=== PATIENT | female | born 1970 | race Two or more races ===

== ENCOUNTER 2017-03-24 08:57 | Outpatient (RCR) | payer OTHER ==
[~2017-03-24] VITALS: Ht 167.6 cm; Wt 96.2 kg
[2017-03-24] MEDS ORDERED: Methohexital Sodium Syr 100mg/10ml IVP ONE ×2 (08:58)
[2017-03-24] MEDS ORDERED: Midazolam 2mg/2ml Inj ONE ×2 (08:58)
[2017-03-24] MEDS ORDERED: NS 500ML IV ONE ×2 (08:58)
[2017-03-24] MEDS ORDERED: Ketorolac 60mg Inj ONE ×2 (08:58)
[2017-03-24] MEDS ORDERED: Succinylcholine 20mg/ml 10ml vial ONE ×2 (08:58)
[2017-03-26] MEDS ORDERED: Methohexital Sodium Syr 100mg/10ml IVP ONE (07:00)
[2017-03-26] MEDS ORDERED: Midazolam 2mg/2ml Inj ONE (07:00)
[2017-03-26] MEDS ORDERED: Succinylcholine 20mg/ml 10ml vial ONE (07:00)
[2017-03-26] MEDS ORDERED: Ketorolac 60mg Inj ONE (07:00)
[2017-03-26] MEDS ORDERED: NS 500ML IV ONE (07:00)
[2017-03-26] MEDS ORDERED: Ketorolac 60mg Inj IV ONE (10:00)
[2017-03-26] MEDS ORDERED: Sodium Chloride 500ML 500 ML IV ONE (10:00)
[2017-03-28] MEDS ORDERED: Ketorolac 60mg Inj ONE (06:00)
[2017-03-28] MEDS ORDERED: NS 500ML IV ONE (06:00)
[2017-03-28] MEDS ORDERED: Succinylcholine 20mg/ml 10ml vial ONE (06:00)
[2017-03-28] MEDS ORDERED: Methohexital Sodium Syr 100mg/10ml IVP ONE (06:00)
[2017-03-28] MEDS ORDERED: Midazolam 2mg/2ml Inj ONE (06:00)
[2017-03-28] MEDS ORDERED: Sodium Chloride 500ML 500 ML IV ONE (09:12)
[2017-03-31] MEDS ORDERED: Ketorolac 60mg Inj ONE (06:00)
[2017-03-31] MEDS ORDERED: Succinylcholine 20mg/ml 10ml vial ONE (06:00)
[2017-03-31] MEDS ORDERED: Midazolam 2mg/2ml Inj ONE (06:00)
[2017-03-31] MEDS ORDERED: NS 500ML IV ONE (06:00)
[2017-03-31] MEDS ORDERED: Methohexital Sodium Syr 100mg/10ml IVP ONE (06:00)
[2017-03-31] MEDS ORDERED: Sodium Chloride 500ML 500 ML IV ONE (11:46)
[2017-04-02] MEDS ORDERED: Succinylcholine 20mg/ml 10ml vial ONE (07:00)
[2017-04-02] MEDS ORDERED: Midazolam 2mg/2ml Inj ONE (07:00)
[2017-04-02] MEDS ORDERED: Ketorolac 60mg Inj ONE (07:00)
[2017-04-02] MEDS ORDERED: NS 500ML IV ONE (07:00)
[2017-04-02] MEDS ORDERED: Methohexital Sodium Syr 100mg/10ml IVP ONE (07:00)
[2017-04-02] MEDS ORDERED: Sodium Chloride 500ML 500 ML IV ONE (09:35)
[2017-04-04] MEDS ORDERED: Succinylcholine 20mg/ml 10ml vial ONE (06:00)
[2017-04-04] MEDS ORDERED: Midazolam 2mg/2ml Inj ONE (06:00)
[2017-04-04] MEDS ORDERED: Methohexital Sodium Syr 100mg/10ml IVP ONE (06:00)
[2017-04-04] MEDS ORDERED: NS 500ML IV ONE (06:00)
[2017-04-04] MEDS ORDERED: Ketorolac 60mg Inj ONE (06:00)
[2017-04-04] MEDS ORDERED: Sodium Chloride 500ML 500 ML IV ONE (09:30)
== END 2017-04-05 | disposition home or self-care (01) ==
LOC: ECT 08:57
DX: F31.63 Bipolar disorder, current episode mixed, severe, without psychotic features (principal)
CPT/HCPCS: 90870; J0330; J2250; J7040

== ENCOUNTER 2017-04-07 08:58 | Outpatient (RCR) | payer OTHER ==
[~2017-04-07] VITALS: Ht 167.6 cm; Wt 96.0 kg
[2017-04-07] MEDS ORDERED: Ketorolac 60mg Inj ONE (08:59)
[2017-04-07] MEDS ORDERED: Succinylcholine 20mg/ml 10ml vial ONE (08:59)
[2017-04-07] MEDS ORDERED: NS 500ML IV ONE (08:59)
[2017-04-07] MEDS ORDERED: Methohexital Sodium Syr 100mg/10ml IVP ONE (08:59)
[2017-04-07] MEDS ORDERED: Midazolam 2mg/2ml Inj ONE (08:59)
[2017-04-07] MEDS ORDERED: Sodium Chloride 500ML 500 ML IV ONE (10:12)
[2017-04-09] MEDS ORDERED: Methohexital Sodium Syr 100mg/10ml IVP ONE (07:00)
[2017-04-09] MEDS ORDERED: Succinylcholine 20mg/ml 10ml vial ONE (07:00)
[2017-04-09] MEDS ORDERED: NS 500ML IV ONE (07:00)
[2017-04-09] MEDS ORDERED: Midazolam 2mg/2ml Inj ONE (07:00)
[2017-04-09] MEDS ORDERED: Ketorolac 60mg Inj ONE (07:00)
[2017-04-09] MEDS ORDERED: Sodium Chloride 500ML 500 ML IV ONE (10:48)
[2017-04-09] MEDS ORDERED: Atropine Sulfate 0.4mg/ml inj IVP PRN (10:48)
[2017-04-11] MEDS ORDERED: Midazolam 2mg/2ml Inj ONE (07:00)
[2017-04-11] MEDS ORDERED: Methohexital Sodium Syr 100mg/10ml IVP ONE (07:00)
[2017-04-11] MEDS ORDERED: Succinylcholine 20mg/ml 10ml vial ONE (07:00)
[2017-04-11] MEDS ORDERED: NS 500ML IV ONE (07:00)
[2017-04-11] MEDS ORDERED: Ketorolac 60mg Inj ONE (07:00)
[2017-04-11] MEDS ORDERED: Sodium Chloride 500ML 500 ML IV ONE (08:43)
[2017-04-14] MEDS ORDERED: Methohexital Sodium Syr 100mg/10ml IVP ONE (07:00)
[2017-04-14] MEDS ORDERED: NS 500ML IV ONE (07:00)
[2017-04-14] MEDS ORDERED: Midazolam 2mg/2ml Inj ONE (07:00)
[2017-04-14] MEDS ORDERED: Ketorolac 60mg Inj ONE (07:00)
[2017-04-14] MEDS ORDERED: Succinylcholine 20mg/ml 10ml vial ONE (07:00)
[2017-04-14] MEDS ORDERED: Sodium Chloride 500ML 500 ML IV ONE (11:18)
[2017-04-21] MEDS ORDERED: Ketorolac 60mg Inj ONE (08:00)
[2017-04-21] MEDS ORDERED: Methohexital Sodium Syr 100mg/10ml IVP ONE (08:00)
[2017-04-21] MEDS ORDERED: Midazolam 2mg/2ml Inj ONE (08:00)
[2017-04-21] MEDS ORDERED: NS 500ML IV ONE (08:00)
[2017-04-21] MEDS ORDERED: Succinylcholine 20mg/ml 10ml vial ONE (08:00)
[2017-04-21] MEDS ORDERED: Sodium Chloride 500ML 500 ML IV ONE (11:37)
[2017-05-05] MEDS ORDERED: Midazolam 2mg/2ml Inj ONE (07:00)
[2017-05-05] MEDS ORDERED: Ketorolac 60mg Inj ONE (07:00)
[2017-05-05] MEDS ORDERED: Succinylcholine 20mg/ml 10ml vial ONE (07:00)
[2017-05-05] MEDS ORDERED: Methohexital Sodium Syr 100mg/10ml IVP ONE (07:00)
[2017-05-05] MEDS ORDERED: NS 500ML IV ONE (07:00)
[2017-05-05] MEDS ORDERED: Sodium Chloride 500ML 500 ML IV ONE (11:19)
[2017-05-05 11:20] VITALS: BP 127/75
[2017-05-05 11:25] VITALS: BP 121/75
[2017-05-05 11:30] VITALS: BP 119/73
[2017-05-05 11:35] VITALS: BP 116/73
== END 2017-05-06 | disposition home or self-care (01) ==
LOC: ECT 08:58
DX: F31.63 Bipolar disorder, current episode mixed, severe, without psychotic features (principal)
CPT/HCPCS: 90870; J0330; J2250; J7040

== ENCOUNTER 2017-05-07 05:02 | Outpatient (RCR) | payer OTHER ==
[~2017-05-07] VITALS: Ht 167.6 cm; Wt 96.0 kg
[2017-05-07] MEDS ORDERED: Succinylcholine 20mg/ml 10ml vial ONE ×3 (05:03)
[2017-05-07] MEDS ORDERED: Ketorolac 60mg Inj ONE ×3 (05:03)
[2017-05-07] MEDS ORDERED: Midazolam 2mg/2ml Inj ONE ×3 (05:03)
[2017-05-07] MEDS ORDERED: NS 500ML ONE ×2 (05:03)
[2017-05-07] MEDS ORDERED: NS 500ML IV ONE (05:03)
[2017-05-07] MEDS ORDERED: Methohexital Sodium Syr 100mg/10ml IVP ONE ×3 (05:03)
[2017-05-07 09:13] VITALS: BP 116/72
[2017-05-07] MEDS ORDERED: Sodium Chloride 500ML 500 ML IV ONE (09:39)
[2017-05-07 09:40] VITALS: BP 127/64
[2017-05-07 09:45] VITALS: BP 123/51
[2017-05-07 09:50] VITALS: BP 114/48
[2017-05-07 09:55] VITALS: BP 99/51
[2017-05-09] MEDS ORDERED: Succinylcholine 20mg/ml 10ml vial ONE (07:00)
[2017-05-09] MEDS ORDERED: Midazolam 2mg/2ml Inj ONE (07:00)
[2017-05-09] MEDS ORDERED: Ketorolac 60mg Inj ONE (07:00)
[2017-05-09] MEDS ORDERED: Methohexital Sodium Syr 100mg/10ml IVP ONE (07:00)
[2017-05-09] MEDS ORDERED: NS 500ML IV ONE (07:00)
[2017-05-09 08:31] VITALS: BP 114/71
[2017-05-09] MEDS ORDERED: Sodium Chloride 500ML 500 ML IV ONE (08:54)
[2017-05-09 08:55] VITALS: BP 120/49
[2017-05-09 09:00] VITALS: BP 113/49
[2017-05-09 09:05] VITALS: BP 109/65
[2017-05-09 09:10] VITALS: BP 109/65
[2017-05-16] MEDS ORDERED: Midazolam 2mg/2ml Inj ONE (07:00)
[2017-05-16] MEDS ORDERED: Ketorolac 60mg Inj ONE (07:00)
[2017-05-16] MEDS ORDERED: NS 500ML ONE (07:00)
[2017-05-16] MEDS ORDERED: Succinylcholine 20mg/ml 10ml vial ONE (07:00)
[2017-05-16] MEDS ORDERED: Methohexital Sodium Syr 100mg/10ml IVP ONE (07:00)
[2017-05-19 11:40] VITALS: BP 122/49
[2017-05-19] MEDS ORDERED: Sodium Chloride 500ML 500 ML IV ONE (11:54)
[2017-05-19 11:55] VITALS: BP 130/60
[2017-05-19 12:00] VITALS: BP 134/62
[2017-05-19 12:05] VITALS: BP 136/55
[2017-05-19 12:10] VITALS: BP 120/68
[2017-05-21] MEDS ORDERED: Succinylcholine 20mg/ml 10ml vial ONE (08:00)
[2017-05-21] MEDS ORDERED: Ketorolac 60mg Inj ONE (08:00)
[2017-05-21] MEDS ORDERED: Midazolam 2mg/2ml Inj ONE (08:00)
[2017-05-21] MEDS ORDERED: Methohexital Sodium Syr 100mg/10ml IVP ONE (08:00)
[2017-05-21] MEDS ORDERED: NS 500ML ONE (08:00)
[2017-05-21 10:39] VITALS: BP 113/67
[2017-05-21] MEDS ORDERED: Sodium Chloride 500ML 500 ML IV ONE (10:56)
[2017-05-21 11:00] VITALS: BP 124/49
[2017-05-21 11:05] VITALS: BP 120/65
[2017-05-21 11:10] VITALS: BP 113/59
[2017-05-21 11:15] VITALS: BP 116/59
[2017-05-23] MEDS ORDERED: Succinylcholine 20mg/ml 10ml vial ONE (06:00)
[2017-05-23] MEDS ORDERED: NS 500ML ONE (06:00)
[2017-05-23] MEDS ORDERED: Midazolam 2mg/2ml Inj ONE (06:00)
[2017-05-23] MEDS ORDERED: Methohexital Sodium Syr 100mg/10ml IVP ONE (06:00)
[2017-05-23] MEDS ORDERED: Ketorolac 60mg Inj ONE (06:00)
[2017-05-23 09:43] VITALS: BP 122/76
[2017-05-23] MEDS ORDERED: Sodium Chloride 500ML 500 ML IV ONE (09:58)
[2017-05-23 10:00] VITALS: BP 132/51
[2017-05-23 10:05] VITALS: BP 123/55
[2017-05-23 10:10] VITALS: BP 126/62
[2017-05-23 10:15] VITALS: BP 112/54
[2017-05-26 09:26] VITALS: BP 114/71
[2017-05-26 09:42] VITALS: BP 122/57
[2017-05-26] MEDS ORDERED: Sodium Chloride 500ML 500 ML IV ONE (09:42)
[2017-05-26 09:47] VITALS: BP 112/53
[2017-05-26 09:52] VITALS: BP 118/47
[2017-05-26 09:57] VITALS: BP 123/50
[2017-05-28] MEDS ORDERED: Sodium Chloride 500ML 500 ML IV ONE (09:22)
[2017-05-28 09:25] VITALS: BP 117/51
[2017-05-28 09:30] VITALS: BP 112/60
[2017-05-28 09:35] VITALS: BP 109/50
[2017-05-28 09:40] VITALS: BP 97/52
[2017-06-04 11:16] VITALS: BP 106/67
[2017-06-04] MEDS ORDERED: Sodium Chloride 500ML 500 ML IV ONE (11:35)
[2017-06-04 11:40] VITALS: BP_SYST 107; BP_SYST 121; BP_DIAS 46
[2017-06-04 11:45] VITALS: BP 121/22
[2017-06-04 11:50] VITALS: BP 123/61
[2017-06-04 11:55] VITALS: BP 125/63
== END 2017-06-05 | disposition home or self-care (01) ==
LOC: ECT 05:02
DX: F31.63 Bipolar disorder, current episode mixed, severe, without psychotic features (principal)
CPT/HCPCS: 90870; J0330; J2250; J7040

== ENCOUNTER 2017-06-09 06:15 | Outpatient (RCR) | payer OTHER ==
[~2017-06-09] VITALS: Ht 167.6 cm; Wt 96.0 kg
[2017-06-09] MEDS ORDERED: Methohexital Sodium Syr 100mg/10ml IVP ONE ×2 (06:16)
[2017-06-09] MEDS ORDERED: Ketorolac 60mg Inj ONE ×2 (06:16)
[2017-06-09] MEDS ORDERED: NS 500ML ONE ×2 (06:16)
[2017-06-09] MEDS ORDERED: Succinylcholine 20mg/ml 10ml vial ONE ×2 (06:16)
[2017-06-09] MEDS ORDERED: Midazolam 2mg/2ml Inj ONE ×2 (06:16)
[2017-06-09 11:26] VITALS: BP 114/58
[2017-06-09] MEDS ORDERED: Sodium Chloride 500ML 500 ML IV ONE (11:41)
[2017-06-09 11:45] VITALS: BP 127/53
[2017-06-09 11:50] VITALS: BP 111/49
[2017-06-09 11:55] VITALS: BP 109/53
[2017-06-09 12:00] VITALS: BP 113/55
[2017-06-13] MEDS ORDERED: Ketorolac 60mg Inj ONE (07:00)
[2017-06-13] MEDS ORDERED: Methohexital Sodium Syr 100mg/10ml IVP ONE (07:00)
[2017-06-13] MEDS ORDERED: Midazolam 2mg/2ml Inj ONE (07:00)
[2017-06-13] MEDS ORDERED: NS 500ML ONE (07:00)
[2017-06-13] MEDS ORDERED: Succinylcholine 20mg/ml 10ml vial ONE (07:00)
[2017-06-13 10:03] VITALS: BP_SYST 134; BP_DIAS 65; BP_DIAS 68
[2017-06-13] MEDS ORDERED: Sodium Chloride 500ML 500 ML IV ONE (10:19)
[2017-06-13 10:20] VITALS: BP 123/62
[2017-06-13 10:25] VITALS: BP 114/60
[2017-06-13 10:30] VITALS: BP 117/47
[2017-06-13 10:35] VITALS: BP 120/61
[2017-06-18 10:44] VITALS: BP 111/78
[2017-06-18] MEDS ORDERED: Sodium Chloride 500ML 500 ML IV ONE (10:58)
[2017-06-18 11:00] VITALS: BP 107/53
[2017-06-18 11:10] VITALS: BP 102/60
[2017-06-18 11:15] VITALS: BP 106/56
[2017-06-23] MEDS ORDERED: Midazolam 2mg/2ml Inj ONE (08:00)
[2017-06-23] MEDS ORDERED: Methohexital Sodium Syr 100mg/10ml IVP ONE (08:00)
[2017-06-23] MEDS ORDERED: NS 500ML ONE (08:00)
[2017-06-23] MEDS ORDERED: Ketorolac 60mg Inj ONE (08:00)
[2017-06-23] MEDS ORDERED: Succinylcholine 20mg/ml 10ml vial ONE (08:00)
[2017-06-23 09:52] VITALS: BP 109/65
[2017-06-23] MEDS ORDERED: Sodium Chloride 500ML 500 ML IV ONE (10:04)
[2017-06-23 10:05] VITALS: BP 122/53
[2017-06-23 10:10] VITALS: BP 123/50
[2017-06-23 10:15] VITALS: BP 122/84
[2017-06-23 10:20] VITALS: BP 126/78
[2017-06-23 11:05] VITALS: BP 125/60
[2017-07-02] MEDS ORDERED: Ketorolac 60mg Inj ONE (08:00)
[2017-07-02] MEDS ORDERED: Midazolam 2mg/2ml Inj ONE (08:00)
[2017-07-02] MEDS ORDERED: Succinylcholine 20mg/ml 10ml vial ONE (08:00)
[2017-07-02] MEDS ORDERED: NS 500ML ONE (08:00)
[2017-07-02] MEDS ORDERED: Methohexital Sodium Syr 100mg/10ml IVP ONE (08:00)
[2017-07-02 10:50] VITALS: BP 120/64
[2017-07-02] MEDS ORDERED: Sodium Chloride 500ML 500 ML IV ONE (11:13)
[2017-07-02] MEDS ORDERED: Atropine Sulfate 0.4mg/ml inj IVP PRN (11:13)
[2017-07-02 11:15] VITALS: BP 115/47
[2017-07-02 11:20] VITALS: BP 110/48
[2017-07-02 11:25] VITALS: BP 115/51
[2017-07-02 11:30] VITALS: BP 117/47
== END 2017-07-06 | disposition home or self-care (01) ==
LOC: ECT 06:15
DX: F31.63 Bipolar disorder, current episode mixed, severe, without psychotic features (principal)
CPT/HCPCS: 90870; J0330; J2250; J7040

== ENCOUNTER 2017-07-09 07:40 | Outpatient (RCR) | payer OTHER ==
[~2017-07-09] VITALS: Ht 167.6 cm; Wt 96.0 kg
[2017-07-09] MEDS ORDERED: Midazolam 2mg/2ml Inj ONE (07:41)
[2017-07-09] MEDS ORDERED: Methohexital Sodium Syr 100mg/10ml IVP ONE (07:41)
[2017-07-09] MEDS ORDERED: NS 500ML ONE (07:41)
[2017-07-09] MEDS ORDERED: Succinylcholine 20mg/ml 10ml vial ONE (07:41)
[2017-07-09] MEDS ORDERED: Ketorolac 60mg Inj ONE (07:41)
[2017-07-14] MEDS ORDERED: Ketorolac 60mg Inj ONE (07:00)
[2017-07-14] MEDS ORDERED: Midazolam 2mg/2ml Inj ONE (07:00)
[2017-07-14] MEDS ORDERED: NS 500ML ONE (07:00)
[2017-07-14] MEDS ORDERED: Succinylcholine 20mg/ml 10ml vial ONE (07:00)
[2017-07-14] MEDS ORDERED: Methohexital Sodium Syr 100mg/10ml IVP ONE (07:00)
[2017-07-14 10:53] VITALS: BP 114/76
[2017-07-14 11:13] VITALS: BP 108/52
[2017-07-14] MEDS ORDERED: Atropine Sulfate 0.4mg/ml inj IVP PRN (11:13)
[2017-07-14] MEDS ORDERED: Sodium Chloride 500ML 500 ML IV ONE (11:13)
[2017-07-14 11:18] VITALS: BP 116/54
[2017-07-14 11:23] VITALS: BP 123/58
[2017-07-14 11:28] VITALS: BP 112/56
[2017-07-28 10:40] VITALS: BP 111/66
[2017-07-28] MEDS ORDERED: Sodium Chloride 500ML 500 ML IV ONE (10:56)
[2017-07-28 11:00] VITALS: BP 110/48
[2017-07-28 11:08] VITALS: BP 112/51
[2017-07-28 11:10] VITALS: BP 108/57
[2017-07-28 11:20] VITALS: BP 109/51
[2017-07-28 11:25] VITALS: BP 113/55
== END 2017-08-06 | disposition home or self-care (01) ==
LOC: ECT 07:40
DX: F31.63 Bipolar disorder, current episode mixed, severe, without psychotic features (principal); E05.20 Thyrotoxicosis with toxic multinodular goiter without thyrotoxic crisis or storm
CPT/HCPCS: 90870; J0330; J2250; J7040

== ENCOUNTER 2017-08-18 06:56 | Outpatient (RCR) | payer OTHER ==
[~2017-08-18] VITALS: Ht 167.6 cm; Wt 96.0 kg
[2017-08-18] MEDS ORDERED: Ketorolac 60mg Inj ONE (06:57)
[2017-08-18] MEDS ORDERED: Midazolam 2mg/2ml Inj ONE (06:57)
[2017-08-18] MEDS ORDERED: NS 500ML ONE (06:57)
[2017-08-18] MEDS ORDERED: Succinylcholine 20mg/ml 10ml vial ONE (06:57)
[2017-08-18] MEDS ORDERED: Methohexital Sodium Syr 100mg/10ml IVP ONE (06:57)
[2017-08-18 10:28] VITALS: BP 106/57
[2017-08-18] MEDS ORDERED: Sodium Chloride 500ML 500 ML IV ONE (10:50)
[2017-08-18 10:55] VITALS: BP 117/45
[2017-08-18 11:00] VITALS: BP 106/49
[2017-08-18 11:05] VITALS: BP 113/89
[2017-08-18 11:10] VITALS: BP 117/48
== END 2017-09-03 | disposition home or self-care (01) ==
LOC: ECT 06:56
DX: F31.63 Bipolar disorder, current episode mixed, severe, without psychotic features (principal)
CPT/HCPCS: 90870; J0330; J2250; J7040

== ENCOUNTER 2017-09-08 09:10 | Outpatient (RCR) | payer OTHER ==
[~2017-09-08] VITALS: Ht 167.6 cm; Wt 43.5 kg
[2017-09-10] MEDS ORDERED: NS 500ML ONE (07:00)
[2017-09-10] MEDS ORDERED: Ketorolac 60mg Inj ONE (07:00)
[2017-09-10] MEDS ORDERED: Midazolam 2mg/2ml Inj ONE (07:00)
[2017-09-10] MEDS ORDERED: Succinylcholine 20mg/ml 10ml vial ONE (07:00)
[2017-09-10] MEDS ORDERED: Methohexital Sodium Syr 100mg/10ml IVP ONE (07:00)
[2017-09-10 10:53] VITALS: BP 108/60
[2017-09-10] MEDS ORDERED: Sodium Chloride 500ML 500 ML IV ONE (11:08)
[2017-09-10 11:10] VITALS: BP 116/44
[2017-09-10 11:15] VITALS: BP 106/43
[2017-09-10 11:20] VITALS: BP 110/46
[2017-09-10 11:25] VITALS: BP 105/51
== END 2017-10-04 | disposition home or self-care (01) ==
LOC: ECT 09:10
DX: F31.63 Bipolar disorder, current episode mixed, severe, without psychotic features (principal)
CPT/HCPCS: 90870; J0330; J2250; J7040

== ENCOUNTER 2017-10-08 08:24 | Outpatient (RCR) | payer OTHER ==
[~2017-10-08] VITALS: Ht 167.6 cm; Wt 96.0 kg
[2017-10-08] MEDS ORDERED: NS 500ML ONE (08:25)
[2017-10-08] MEDS ORDERED: Succinylcholine 20mg/ml 10ml vial ONE (08:25)
[2017-10-08] MEDS ORDERED: Ketorolac 60mg Inj ONE (08:25)
[2017-10-08] MEDS ORDERED: Midazolam 2mg/2ml Inj ONE (08:25)
[2017-10-08] MEDS ORDERED: Methohexital Sodium 500mg Vial IVP ONE (08:25)
[2017-10-15 08:51] VITALS: BP 111/74
[2017-10-15] MEDS ORDERED: Sodium Chloride 500ML 500 ML IV ONE (09:10)
[2017-10-15 09:15] VITALS: BP 112/50
[2017-10-15 09:20] VITALS: BP 109/55
[2017-10-15 09:25] VITALS: BP 111/53
[2017-10-15 09:30] VITALS: BP 111/53
== END 2017-11-03 | disposition home or self-care (01) ==
LOC: ECT 08:24
DX: F31.63 Bipolar disorder, current episode mixed, severe, without psychotic features (principal)
CPT/HCPCS: 90870; J0330; J2250; J3490; J7040

== ENCOUNTER 2017-11-12 06:49 | Outpatient (RCR) | payer OTHER ==
[~2017-11-12] VITALS: Ht 30.5 cm; Wt 0.5 kg
[2017-11-17] MEDS ORDERED: Midazolam 2mg/2ml Inj ONE (07:00)
[2017-11-17] MEDS ORDERED: Ketorolac 60mg Inj ONE (07:00)
[2017-11-17] MEDS ORDERED: Succinylcholine 20mg/ml 10ml vial ONE (07:00)
[2017-11-17] MEDS ORDERED: Methohexital Sodium Syr 100mg/10ml IVP ONE (07:00)
[2017-11-17] MEDS ORDERED: NS 500ML ONE (07:00)
[2017-11-17] MEDS ORDERED: Atropine Sulfate 0.4mg/ml inj IVP PRN (11:08)
[2017-11-17] MEDS ORDERED: Sodium Chloride 500ML 500 ML IV ONE (11:08)
[2017-11-17 11:10] VITALS: BP 106/43
[2017-11-17 11:15] VITALS: BP 109/49
[2017-11-17 11:20] VITALS: BP 107/47
[2017-11-17 11:25] VITALS: BP 106/48
[2017-11-17 11:30] VITALS: BP 104/42
[2017-11-17 11:35] VITALS: BP 107/44
== END 2017-12-04 | disposition home or self-care (01) ==
LOC: ECT 06:49
DX: F31.63 Bipolar disorder, current episode mixed, severe, without psychotic features (principal)
CPT/HCPCS: 90870; J0330; J2250; J7040

== ENCOUNTER 2017-12-08 09:14 | Outpatient (RCR) | payer OTHER ==
[~2017-12-08] VITALS: Ht 167.6 cm; Wt 96.0 kg
[2017-12-08] MEDS ORDERED: NS 500ML ONE ×2 (09:15)
[2017-12-08] MEDS ORDERED: Methohexital Sodium Syr 100mg/10ml IVP ONE ×2 (09:15)
[2017-12-08] MEDS ORDERED: Midazolam 2mg/2ml Inj ONE ×2 (09:15)
[2017-12-08] MEDS ORDERED: Ketorolac 60mg Inj ONE ×2 (09:15)
[2017-12-08] MEDS ORDERED: Succinylcholine 20mg/ml 10ml vial ONE ×2 (09:15)
[2017-12-08 10:30] VITALS: BP 111/66
[2017-12-08] MEDS ORDERED: Sodium Chloride 500ML 500 ML IV ONE (10:44)
[2017-12-08 10:45] VITALS: BP 120/44
[2017-12-08 10:50] VITALS: BP 109/49
[2017-12-08 10:55] VITALS: BP 112/49
[2017-12-08 11:00] VITALS: BP 113/53
[2017-12-08 11:05] VITALS: BP 116/50
[2017-12-17] MEDS ORDERED: NS 500ML ONE (07:00)
[2017-12-17] MEDS ORDERED: Methohexital Sodium Syr 100mg/10ml IVP ONE (07:00)
[2017-12-17] MEDS ORDERED: Succinylcholine 20mg/ml 10ml vial ONE (07:00)
[2017-12-17] MEDS ORDERED: Ketorolac 60mg Inj ONE (07:00)
[2017-12-17] MEDS ORDERED: Midazolam 2mg/2ml Inj ONE (07:00)
[2017-12-17 10:12] VITALS: BP 117/69
[2017-12-17 10:40] VITALS: BP_SYST 111; BP_SYST 117; BP_DIAS 50; BP_DIAS 69
[2017-12-17 10:45] VITALS: BP 115/55
[2017-12-17 10:50] VITALS: BP 120/54
[2017-12-17 10:55] VITALS: BP 119/56
[2017-12-17] MEDS ORDERED: Atropine Sulfate 0.4mg/ml inj IVP PRN ×2 (14:30→14:45)
[2017-12-19] MEDS ORDERED: Ketorolac 60mg Inj ONE (07:00)
[2017-12-19] MEDS ORDERED: Methohexital Sodium Syr 100mg/10ml IVP ONE (07:00)
[2017-12-19] MEDS ORDERED: NS 500ML ONE (07:00)
[2017-12-19] MEDS ORDERED: Midazolam 2mg/2ml Inj ONE (07:00)
[2017-12-19] MEDS ORDERED: Succinylcholine 20mg/ml 10ml vial ONE (07:00)
[2017-12-19 10:25] VITALS: BP 104/63
[2017-12-19] MEDS ORDERED: Atropine Sulfate 0.4mg/ml inj IVP PRN (10:54)
[2017-12-19] MEDS ORDERED: Sodium Chloride 500ML 500 ML IV ONE (10:54)
[2017-12-19 10:55] VITALS: BP 112/60
[2017-12-19 11:00] VITALS: BP 109/57
[2017-12-19 11:05] VITALS: BP 111/51
[2017-12-19 11:10] VITALS: BP 108/62
[2017-12-22 10:22] VITALS: BP 114/60
[2017-12-22] MEDS ORDERED: Sodium Chloride 500ML 500 ML IV ONE (10:39)
[2017-12-22 10:40] VITALS: BP 112/55
[2017-12-22 10:45] VITALS: BP 117/57
[2017-12-22 10:50] VITALS: BP 116/63
[2017-12-22 10:55] VITALS: BP 110/66
[2017-12-24] MEDS ORDERED: Succinylcholine 20mg/ml 10ml vial ONE (07:00)
[2017-12-24] MEDS ORDERED: NS 500ML ONE (07:00)
[2017-12-24] MEDS ORDERED: Ketorolac 60mg Inj ONE (07:00)
[2017-12-24] MEDS ORDERED: Midazolam 2mg/2ml Inj ONE (07:00)
[2017-12-24] MEDS ORDERED: Methohexital Sodium Syr 100mg/10ml IVP ONE (07:00)
[2017-12-24 10:10] VITALS: BP 99/60
[2017-12-24] MEDS ORDERED: Sodium Chloride 500ML 500 ML IV ONE (10:23)
[2017-12-24 10:25] VITALS: BP 116/46
[2017-12-24 10:30] VITALS: BP 121/47
[2017-12-24 10:35] VITALS: BP 106/53
[2017-12-24 10:40] VITALS: BP 109/52
[2017-12-26] MEDS ORDERED: NS 500ML ONE (07:00)
[2017-12-26] MEDS ORDERED: Midazolam 2mg/2ml Inj ONE (07:00)
[2017-12-26] MEDS ORDERED: Methohexital Sodium Syr 100mg/10ml IVP ONE (07:00)
[2017-12-26] MEDS ORDERED: Ketorolac 60mg Inj ONE (07:00)
[2017-12-26] MEDS ORDERED: Succinylcholine 20mg/ml 10ml vial ONE (07:00)
[2017-12-26 09:23] VITALS: BP 103/62
[2017-12-26 09:39] VITALS: BP 112/64
[2017-12-26] MEDS ORDERED: Sodium Chloride 500ML 500 ML IV ONE (09:39)
[2017-12-26 09:44] VITALS: BP 120/74
[2017-12-26 09:49] VITALS: BP 127/67
[2017-12-26 09:54] VITALS: BP 116/60
[2017-12-31] MEDS ORDERED: Midazolam 2mg/2ml Inj ONE (07:00)
[2017-12-31] MEDS ORDERED: Succinylcholine 20mg/ml 10ml vial ONE (07:00)
[2017-12-31] MEDS ORDERED: Ketorolac 60mg Inj ONE (07:00)
[2017-12-31] MEDS ORDERED: NS 500ML ONE (07:00)
[2017-12-31] MEDS ORDERED: Methohexital Sodium Syr 100mg/10ml IVP ONE (07:00)
[2017-12-31 10:50] VITALS: BP 113/68
[2017-12-31 11:05] VITALS: BP 105/43
[2017-12-31] MEDS ORDERED: Sodium Chloride 500ML 500 ML IV ONE (11:05)
[2017-12-31 11:10] VITALS: BP 101/45
[2017-12-31 11:15] VITALS: BP 108/49
[2017-12-31 11:20] VITALS: BP 108/55
[2018-01-02 08:15] VITALS: BP 107/64
[2018-01-02 08:30] VITALS: BP 105/52
[2018-01-02] MEDS ORDERED: Sodium Chloride 500ML 500 ML IV ONE (08:30)
[2018-01-02 08:35] VITALS: BP 99/45
[2018-01-02 08:40] VITALS: BP 108/56
[2018-01-02 08:45] VITALS: BP 104/64
[2018-01-03] MEDS ORDERED: Ketorolac 60mg Inj ONE (10:21)
[2018-01-03] MEDS ORDERED: Midazolam 2mg/2ml Inj ONE (10:21)
[2018-01-03] MEDS ORDERED: Succinylcholine 20mg/ml 10ml vial ONE (10:21)
[2018-01-03] MEDS ORDERED: Methohexital Sodium 500mg Vial IVP ONE (10:21)
[2018-01-03] MEDS ORDERED: NS 500ML ONE (10:21)
== END 2018-01-03 | disposition home or self-care (01) ==
LOC: ECT 09:14
DX: F31.63 Bipolar disorder, current episode mixed, severe, without psychotic features (principal)
CPT/HCPCS: 90870; J0330; J2250; J3490; J7040

== ENCOUNTER 2018-01-09 05:04 | Outpatient (RCR) | payer OTHER ==
[~2018-01-09] VITALS: Ht 167.6 cm; Wt 96.0 kg
[2018-01-09] MEDS ORDERED: Midazolam 2mg/2ml Inj ONE (05:05)
[2018-01-09] MEDS ORDERED: NS 500ML ONE (05:05)
[2018-01-09] MEDS ORDERED: Succinylcholine 20mg/ml 10ml vial ONE (05:05)
[2018-01-09] MEDS ORDERED: Methohexital Sodium Syr 100mg/10ml IVP ONE (05:05)
[2018-01-09] MEDS ORDERED: Ketamine HCl 100mg syr ONE (05:05)
[2018-01-12] MEDS ORDERED: Midazolam 2mg/2ml Inj ONE (07:00)
[2018-01-12] MEDS ORDERED: Ketorolac 60mg Inj ONE (07:00)
[2018-01-12] MEDS ORDERED: Methohexital Sodium Syr 100mg/10ml IVP ONE (07:00)
[2018-01-12] MEDS ORDERED: NS 500ML ONE (07:00)
[2018-01-12] MEDS ORDERED: Succinylcholine 20mg/ml 10ml vial ONE (07:00)
[2018-01-12 10:30] VITALS: BP 106/63
[2018-01-12] MEDS ORDERED: Sodium Chloride 500ML 500 ML IV ONE (10:43)
[2018-01-12 10:45] VITALS: BP 111/49
[2018-01-12 10:50] VITALS: BP 101/51
[2018-01-12 10:55] VITALS: BP 104/55
[2018-01-12 11:00] VITALS: BP 109/52
[2018-01-14] MEDS ORDERED: Methohexital Sodium Syr 100mg/10ml IVP ONE (06:00)
[2018-01-14] MEDS ORDERED: Succinylcholine 20mg/ml 10ml vial ONE (06:00)
[2018-01-14] MEDS ORDERED: Midazolam 2mg/2ml Inj ONE (06:00)
[2018-01-14] MEDS ORDERED: Ketorolac 60mg Inj ONE (06:00)
[2018-01-14] MEDS ORDERED: NS 500ML ONE (06:00)
[2018-01-14 10:19] VITALS: BP 98/62
[2018-01-14 10:35] VITALS: BP 104/46
[2018-01-14 10:40] VITALS: BP 101/49
[2018-01-14 10:45] VITALS: BP 117/63
[2018-01-14 10:50] VITALS: BP 116/49
[2018-01-16 08:56] VITALS: BP 105/62
[2018-01-16] MEDS ORDERED: Sodium Chloride 500ML 500 ML IV ONE (09:08)
[2018-01-16 09:10] VITALS: BP 103/62
[2018-01-16 09:15] VITALS: BP 104/51
[2018-01-16 09:20] VITALS: BP 119/57
[2018-01-16 09:25] VITALS: BP 115/59
[2018-01-16 09:30] VITALS: BP 112/51
[2018-01-21] MEDS ORDERED: NS 500ML ONE (08:00)
[2018-01-21] MEDS ORDERED: Methohexital Sodium Syr 100mg/10ml IVP ONE (08:00)
[2018-01-21] MEDS ORDERED: Succinylcholine 20mg/ml 10ml vial ONE (08:00)
[2018-01-21] MEDS ORDERED: Midazolam 2mg/2ml Inj ONE (08:00)
[2018-01-21] MEDS ORDERED: Ketorolac 60mg Inj ONE (08:00)
[2018-01-21 11:11] VITALS: BP 114/78
[2018-01-21] MEDS ORDERED: Sodium Chloride 500ML 500 ML IV ONE (11:25)
[2018-01-21 11:30] VITALS: BP 132/58
[2018-01-21 11:35] VITALS: BP 138/55
[2018-01-21 11:40] VITALS: BP 130/60
[2018-01-21 11:45] VITALS: BP 126/73
[2018-02-02] MEDS ORDERED: Succinylcholine 20mg/ml 10ml vial ONE (08:00)
[2018-02-02] MEDS ORDERED: Methohexital Sodium Syr 100mg/10ml IVP ONE (08:00)
[2018-02-02] MEDS ORDERED: NS 500ML ONE (08:00)
[2018-02-02] MEDS ORDERED: Ketorolac 60mg Inj ONE (08:00)
[2018-02-02] MEDS ORDERED: Midazolam 2mg/2ml Inj ONE (08:00)
[2018-02-02 10:37] VITALS: BP 111/63
[2018-02-02] MEDS ORDERED: Sodium Chloride 500ML 500 ML IV ONE (10:54)
[2018-02-02 10:55] VITALS: BP 105/71
[2018-02-02 11:00] VITALS: BP 112/46
[2018-02-02 11:05] VITALS: BP 115/54
[2018-02-02 11:10] VITALS: BP 117/56
== END 2018-02-03 | disposition home or self-care (01) ==
LOC: ECT 05:04
DX: F31.63 Bipolar disorder, current episode mixed, severe, without psychotic features (principal)
CPT/HCPCS: 90870; J0330; J2250; J7040

== ENCOUNTER 2018-02-18 06:29 | Outpatient (RCR) | payer OTHER ==
[~2018-02-18] VITALS: Ht 30.5 cm; Wt 0.5 kg
[2018-02-18] MEDS ORDERED: Ketorolac 60mg Inj IM ONE (06:30)
[2018-02-18] MEDS ORDERED: Succinylcholine 20mg/ml 10ml vial ONE (06:30)
[2018-02-18] MEDS ORDERED: Midazolam 2mg/2ml Inj ONE (06:30)
[2018-02-18] MEDS ORDERED: NS 500ML ONE (06:30)
[2018-02-18] MEDS ORDERED: Methohexital Sodium Syr 100mg/10ml IVP ONE (06:30)
[2018-02-18] MEDS ORDERED: Sodium Chloride 500ML 500 ML IV ONE (10:13)
[2018-02-18 10:15] VITALS: BP 112/53
[2018-02-18 10:20] VITALS: BP 111/48
[2018-02-18 10:25] VITALS: BP 119/49
[2018-02-18 10:30] VITALS: BP 117/51
[2018-02-18 10:35] VITALS: BP 120/53
== END 2018-03-06 | disposition home or self-care (01) ==
LOC: ECT 06:29
DX: F31.63 Bipolar disorder, current episode mixed, severe, without psychotic features (principal)
CPT/HCPCS: 90870; J0330; J2250; J7040

== ENCOUNTER 2018-03-11 06:57 | Outpatient (RCR) | payer OTHER ==
[~2018-03-11] VITALS: Ht 167.6 cm; Wt 96.0 kg
[2018-03-30] MEDS ORDERED: Methohexital Sodium Syr 100mg/10ml IVP ONE (07:00)
[2018-03-30] MEDS ORDERED: NS 500ML ONE (07:00)
[2018-03-30] MEDS ORDERED: Succinylcholine 20mg/ml 10ml vial ONE (07:00)
[2018-03-30] MEDS ORDERED: Ketorolac 60mg Inj IM ONE (07:00)
[2018-03-30] MEDS ORDERED: Midazolam 2mg/2ml Inj ONE (07:00)
[2018-03-30 09:54] VITALS: BP_SYST 101; BP_SYST 119; BP_DIAS 56; BP_DIAS 78
[2018-03-30] MEDS ORDERED: Sodium Chloride 500ML 500 ML IV ONE (10:00)
[2018-03-30 10:15] VITALS: BP 118/53
[2018-03-30 10:20] VITALS: BP 120/53
[2018-03-30 10:25] VITALS: BP 121/54
[2018-03-30 10:30] VITALS: BP 113/53
== END 2018-04-05 | disposition home or self-care (01) ==
LOC: ECT 06:57
DX: F31.63 Bipolar disorder, current episode mixed, severe, without psychotic features (principal)
CPT/HCPCS: 90870; J0330; J2250; J7040

== ENCOUNTER 2018-04-13 05:45 | Outpatient (RCR) | payer OTHER ==
[~2018-04-13] VITALS: Ht 30.5 cm; Wt 0.5 kg
[2018-04-20] MEDS ORDERED: Ketorolac 60mg Inj IM ONE (06:00)
[2018-04-20] MEDS ORDERED: Midazolam 2mg/2ml Inj ONE (06:00)
[2018-04-20] MEDS ORDERED: Methohexital Sodium Syr 100mg/10ml IVP ONE (06:00)
[2018-04-20] MEDS ORDERED: NS 500ML ONE (06:00)
[2018-04-20] MEDS ORDERED: Succinylcholine 20mg/ml 10ml vial ONE (06:00)
[2018-04-20 11:05] VITALS: BP 112/67
[2018-04-20] MEDS ORDERED: Sodium Chloride 500ML 500 ML IV ONE (11:24)
[2018-04-20 11:25] VITALS: BP 121/61
[2018-04-20 11:30] VITALS: BP 116/57
[2018-04-20 11:35] VITALS: BP 114/54
[2018-04-20 11:40] VITALS: BP 114/60
== END 2018-05-06 | disposition home or self-care (01) ==
LOC: ECT 05:45
DX: F31.63 Bipolar disorder, current episode mixed, severe, without psychotic features (principal)
CPT/HCPCS: 90870; J0330; J2250; J7040

== ENCOUNTER 2018-05-13 05:17 | Outpatient (RCR) | payer OTHER ==
[~2018-05-13] VITALS: Ht 167.6 cm; Wt 96.0 kg
[2018-05-13] MEDS ORDERED: NS 500ML ONE (05:18)
[2018-05-13] MEDS ORDERED: Ketorolac 60mg Inj IM ONE (05:18)
[2018-05-13] MEDS ORDERED: Midazolam 2mg/2ml Inj ONE (05:18)
[2018-05-13] MEDS ORDERED: Succinylcholine 20mg/ml 10ml vial ONE (05:18)
[2018-05-13] MEDS ORDERED: Methohexital Sodium Syr 100mg/10ml IVP ONE (05:18)
[2018-05-13 10:24] VITALS: BP 110/68
[2018-05-13] MEDS ORDERED: Sodium Chloride 500ML 500 ML IV ONE (10:46)
[2018-05-13 10:50] VITALS: BP 126/54
[2018-05-13 10:55] VITALS: BP 127/47
[2018-05-13 11:00] VITALS: BP 111/47
[2018-05-13 11:05] VITALS: BP 112/49
== END 2018-06-05 | disposition home or self-care (01) ==
LOC: ECT 05:17
DX: F31.63 Bipolar disorder, current episode mixed, severe, without psychotic features (principal)
CPT/HCPCS: 90870; J0330; J2250; J7040

== ENCOUNTER 2018-06-10 05:11 | Outpatient (RCR) | payer OTHER ==
[~2018-06-10] VITALS: Ht 167.6 cm; Wt 96.0 kg
[2018-06-10] MEDS ORDERED: Midazolam 2mg/2ml Inj ONE (05:12)
[2018-06-10] MEDS ORDERED: Methohexital Sodium Syr 100mg/10ml IVP ONE (05:12)
[2018-06-10] MEDS ORDERED: NS 500ML ONE (05:12)
[2018-06-10] MEDS ORDERED: Succinylcholine 20mg/ml 10ml vial ONE (05:12)
[2018-06-10] MEDS ORDERED: Ketorolac 60mg Inj IM ONE (05:12)
[2018-06-10 10:32] VITALS: BP 117/63
[2018-06-10 10:55] VITALS: BP 113/57
[2018-06-10 11:00] VITALS: BP 115/55
[2018-06-10 11:05] VITALS: BP 111/60
[2018-06-10 11:10] VITALS: BP 116/64
[2018-06-10] MEDS ORDERED: Sodium Chloride 500ML 500 ML IV ONE (14:30)
== END 2018-07-06 | disposition home or self-care (01) ==
LOC: ECT 05:11
DX: F31.63 Bipolar disorder, current episode mixed, severe, without psychotic features (principal)
CPT/HCPCS: 90870; J0330; J2250; J7040

== ENCOUNTER 2018-07-08 05:48 | Outpatient (RCR) | payer MEDICARE, OTHER ==
[~2018-07-08] VITALS: Ht 167.6 cm; Wt 96.0 kg
[2018-07-08] MEDS ORDERED: Methohexital Sodium Syr 100mg/10ml IVP ONE (05:49)
[2018-07-08] MEDS ORDERED: Midazolam 2mg/2ml Inj ONE (05:49)
[2018-07-08] MEDS ORDERED: Succinylcholine 20mg/ml 10ml vial ONE (05:49)
[2018-07-08] MEDS ORDERED: Ketorolac 60mg Inj IM ONE (05:49)
[2018-07-08] MEDS ORDERED: NS 500ML ONE (05:49)
[2018-07-08 10:10] VITALS: BP 103/54
[2018-07-08 10:36] VITALS: BP 107/34
[2018-07-08 10:41] VITALS: BP 105/55
[2018-07-08 10:46] VITALS: BP 109/45
[2018-07-08 10:51] VITALS: BP 102/52
== END 2018-08-06 | disposition home or self-care (01) ==
LOC: ECT 05:48
DX: F31.63 Bipolar disorder, current episode mixed, severe, without psychotic features (principal)
CPT/HCPCS: 90870; J0330; J2250; J7040

== ENCOUNTER 2018-08-10 05:06 | Outpatient (RCR) | payer OTHER ==
[~2018-08-10] VITALS: Ht 167.6 cm; Wt 96.0 kg
[2018-08-19 10:54] VITALS: BP 102/59
[2018-08-19 11:10] VITALS: BP 111/55
[2018-08-19 11:15] VITALS: BP 108/58
[2018-08-19 11:20] VITALS: BP 117/64
[2018-08-19 11:25] VITALS: BP 116/57
[2018-08-20] MEDS ORDERED: Methohexital Sodium Syr 100mg/10ml IVP ONE (06:00)
[2018-08-20] MEDS ORDERED: Ketorolac 60mg Inj IM ONE (06:00)
[2018-08-20] MEDS ORDERED: Midazolam 2mg/2ml Inj ONE (06:00)
[2018-08-20] MEDS ORDERED: NS 500ML ONE (06:00)
[2018-08-20] MEDS ORDERED: Succinylcholine 20mg/ml 10ml vial ONE (06:00)
[2018-08-31] MEDS ORDERED: Succinylcholine 20mg/ml 10ml vial ONE (06:00)
[2018-08-31] MEDS ORDERED: Midazolam 2mg/2ml Inj ONE (06:00)
[2018-08-31] MEDS ORDERED: Ketorolac 60mg Inj IM ONE (06:00)
[2018-08-31] MEDS ORDERED: Methohexital Sodium Syr 100mg/10ml IVP ONE (06:00)
[2018-08-31] MEDS ORDERED: NS 500ML ONE (06:00)
[2018-08-31 10:30] VITALS: BP 121/76
[2018-08-31 10:46] VITALS: BP 107/44
[2018-08-31 10:51] VITALS: BP 111/50
[2018-08-31 10:56] VITALS: BP 111/49
[2018-08-31 11:01] VITALS: BP 116/50
== END 2018-09-03 | disposition home or self-care (01) ==
LOC: ECT 05:06
DX: F31.63 Bipolar disorder, current episode mixed, severe, without psychotic features (principal)
CPT/HCPCS: 90870; J0330; J2250; J7040

== ENCOUNTER 2018-09-16 04:33 | Outpatient (RCR) | payer OTHER ==
[~2018-09-16] VITALS: Ht 167.6 cm; Wt 96.0 kg
[2018-09-16] MEDS ORDERED: NS 500ML ONE (04:34)
[2018-09-16] MEDS ORDERED: Ketorolac 60mg Inj IM ONE (04:34)
[2018-09-16] MEDS ORDERED: Midazolam 2mg/2ml Inj ONE (04:34)
[2018-09-16] MEDS ORDERED: Succinylcholine 20mg/ml 10ml vial ONE (04:34)
[2018-09-16] MEDS ORDERED: Methohexital Sodium Syr 100mg/10ml IVP ONE (04:34)
[2018-09-16 10:13] VITALS: BP 107/64
[2018-09-23] MEDS ORDERED: Methohexital Sodium Syr 100mg/10ml IVP ONE (09:00)
[2018-09-23] MEDS ORDERED: NS 500ML ONE (09:00)
[2018-09-23] MEDS ORDERED: Ketorolac 60mg Inj IM ONE (09:00)
[2018-09-23] MEDS ORDERED: Succinylcholine 20mg/ml 10ml vial ONE (09:00)
[2018-09-23] MEDS ORDERED: Midazolam 2mg/2ml Inj ONE (09:00)
[2018-09-23 11:31] VITALS: BP 109/69
[2018-09-23 11:55] VITALS: BP 110/46
[2018-09-23 12:00] VITALS: BP 113/55
[2018-09-23 12:05] VITALS: BP 113/56
[2018-09-23 12:10] VITALS: BP 108/57
[2018-09-28] MEDS ORDERED: Ketorolac 60mg Inj IM ONE (06:00)
[2018-09-28] MEDS ORDERED: NS 500ML ONE (06:00)
[2018-09-28] MEDS ORDERED: Methohexital Sodium Syr 100mg/10ml IVP ONE (06:00)
[2018-09-28] MEDS ORDERED: Succinylcholine 20mg/ml 10ml vial ONE (06:00)
[2018-09-28] MEDS ORDERED: Midazolam 2mg/2ml Inj ONE (06:00)
[2018-09-28 09:52] VITALS: BP 97/53
[2018-09-28] MEDS ORDERED: Atropine Sulfate 0.4mg/ml inj IVP PRN (10:13)
[2018-09-28 10:15] VITALS: BP 102/38
[2018-09-28 10:20] VITALS: BP 102/37
[2018-09-28 10:25] VITALS: BP 100/42
[2018-09-28 10:30] VITALS: BP 107/46
[2018-10-02] MEDS ORDERED: Ketorolac 60mg Inj IM ONE (07:00)
[2018-10-02] MEDS ORDERED: NS 500ML ONE (07:00)
[2018-10-02] MEDS ORDERED: Methohexital Sodium Syr 100mg/10ml IVP ONE (07:00)
[2018-10-02] MEDS ORDERED: Midazolam 2mg/2ml Inj ONE (07:00)
[2018-10-02] MEDS ORDERED: Succinylcholine 20mg/ml 10ml vial ONE (07:00)
[2018-10-02 10:54] VITALS: BP 102/57
[2018-10-02] MEDS ORDERED: Atropine Sulfate 0.4mg/ml inj IVP PRN (11:18)
[2018-10-02 11:20] VITALS: BP 111/44
[2018-10-02 11:25] VITALS: BP 114/47
[2018-10-02 11:30] VITALS: BP 109/38
[2018-10-02 11:35] VITALS: BP 119/47
== END 2018-10-04 | disposition home or self-care (01) ==
LOC: ECT 04:33
DX: F31.63 Bipolar disorder, current episode mixed, severe, without psychotic features (principal)
CPT/HCPCS: 90870; J0330; J2250; J7040

== ENCOUNTER 2018-10-07 08:57 | Outpatient (RCR) | payer OTHER ==
[~2018-10-07] VITALS: Ht 167.6 cm; Wt 96.0 kg
[2018-10-07] MEDS ORDERED: NS 500ML ONE (08:58)
[2018-10-07] MEDS ORDERED: Midazolam 2mg/2ml Inj ONE (08:58)
[2018-10-07] MEDS ORDERED: Methohexital Sodium Syr 100mg/10ml IVP ONE (08:58)
[2018-10-07] MEDS ORDERED: Succinylcholine 20mg/ml 10ml vial ONE (08:58)
[2018-10-07] MEDS ORDERED: Ketorolac 60mg Inj IM ONE (08:58)
[2018-10-07 10:22] VITALS: BP 103/58
[2018-10-07 10:35] VITALS: BP 113/56
[2018-10-07 10:40] VITALS: BP 111/52
[2018-10-07 10:45] VITALS: BP 111/46
[2018-10-07 10:50] VITALS: BP 104/52
[2018-10-12] MEDS ORDERED: Midazolam 2mg/2ml Inj ONE (07:00)
[2018-10-12] MEDS ORDERED: Succinylcholine 20mg/ml 10ml vial ONE (07:00)
[2018-10-12] MEDS ORDERED: NS 500ML ONE (07:00)
[2018-10-12] MEDS ORDERED: Ketorolac 60mg Inj IM ONE (07:00)
[2018-10-12] MEDS ORDERED: Methohexital Sodium Syr 100mg/10ml IVP ONE (07:00)
[2018-10-12 10:05] VITALS: BP 109/65
[2018-10-12 10:20] VITALS: BP 97/45
[2018-10-12 10:25] VITALS: BP 99/49
[2018-10-12 10:30] VITALS: BP 105/50
[2018-10-12 10:35] VITALS: BP 102/47
[2018-10-16] MEDS ORDERED: Ketorolac 60mg Inj IM ONE (06:00)
[2018-10-16] MEDS ORDERED: Succinylcholine 20mg/ml 10ml vial ONE (06:00)
[2018-10-16] MEDS ORDERED: Midazolam 2mg/2ml Inj ONE (06:00)
[2018-10-16] MEDS ORDERED: NS 500ML ONE (06:00)
[2018-10-16] MEDS ORDERED: Methohexital Sodium Syr 100mg/10ml IVP ONE (06:00)
[2018-10-16 09:46] VITALS: BP 115/70
[2018-10-16 10:00] VITALS: BP 108/48
[2018-10-16 10:05] VITALS: BP 112/53
[2018-10-16 10:10] VITALS: BP 112/52
[2018-10-16 10:15] VITALS: BP 121/50
[2018-10-23] MEDS ORDERED: Succinylcholine 20mg/ml 10ml vial ONE (06:00)
[2018-10-23] MEDS ORDERED: Methohexital Sodium Syr 100mg/10ml IVP ONE (06:00)
[2018-10-23] MEDS ORDERED: Ketorolac 60mg Inj IM ONE (06:00)
[2018-10-23] MEDS ORDERED: Midazolam 2mg/2ml Inj ONE (06:00)
[2018-10-23 09:24] VITALS: BP 109/64
[2018-10-23 09:38] VITALS: BP 122/56
[2018-10-23 09:43] VITALS: BP 112/55
[2018-10-23 09:48] VITALS: BP 111/53
[2018-10-23 09:53] VITALS: BP 113/53
== END 2018-11-03 | disposition home or self-care (01) ==
LOC: ECT 08:57
DX: F31.63 Bipolar disorder, current episode mixed, severe, without psychotic features (principal)
CPT/HCPCS: 90870; J0330; J2250; J7040

== ENCOUNTER 2018-11-04 08:18 | Outpatient (RCR) | payer OTHER ==
[~2018-11-04] VITALS: Ht 30.5 cm; Wt 0.5 kg
[2018-11-04] MEDS ORDERED: Midazolam 2mg/2ml Inj ONE (08:19)
[2018-11-04] MEDS ORDERED: Succinylcholine 20mg/ml 10ml vial ONE (08:19)
[2018-11-04] MEDS ORDERED: Ketorolac 60mg Inj IM ONE (08:19)
[2018-11-04] MEDS ORDERED: Methohexital Sodium Syr 100mg/10ml IVP ONE (08:19)
[2018-11-04] MEDS ORDERED: NS 500ML ONE (08:19)
[2018-11-04 10:34] VITALS: BP 120/62
[2018-11-04 10:50] VITALS: BP 120/62
[2018-11-04 10:55] VITALS: BP 122/54
[2018-11-04 11:00] VITALS: BP 120/57
[2018-11-04 11:05] VITALS: BP 125/62
[2018-11-16] MEDS ORDERED: NS 500ML ONE (06:00)
[2018-11-16] MEDS ORDERED: Midazolam 2mg/2ml Inj ONE (06:00)
[2018-11-16] MEDS ORDERED: Succinylcholine 20mg/ml 10ml vial ONE (06:00)
[2018-11-16] MEDS ORDERED: Methohexital Sodium Syr 100mg/10ml IVP ONE (06:00)
[2018-11-16] MEDS ORDERED: Ketorolac 60mg Inj IM ONE (06:00)
[2018-11-16 10:01] VITALS: BP 118/64
[2018-11-16 10:10] VITALS: BP 119/47
[2018-11-16 10:15] VITALS: BP 110/49
[2018-11-16 10:20] VITALS: BP 112/55
[2018-11-16 10:25] VITALS: BP 114/55
[2018-12-04] MEDS ORDERED: Midazolam 2mg/2ml Inj ONE (09:00)
[2018-12-04] MEDS ORDERED: Succinylcholine 20mg/ml 10ml vial ONE (09:00)
[2018-12-04] MEDS ORDERED: Methohexital Sodium Syr 100mg/10ml IVP ONE (09:00)
[2018-12-04] MEDS ORDERED: NS 500ML ONE (09:00)
[2018-12-04] MEDS ORDERED: Ketorolac 60mg Inj IM ONE (09:00)
[2018-12-04 09:17] VITALS: BP 121/70
[2018-12-04 09:35] VITALS: BP 114/48
[2018-12-04 09:40] VITALS: BP 118/63
[2018-12-04 09:45] VITALS: BP 125/59
[2018-12-04 09:50] VITALS: BP 127/55
== END 2018-12-04 | disposition home or self-care (01) ==
LOC: ECT 08:18
DX: F31.63 Bipolar disorder, current episode mixed, severe, without psychotic features (principal)
CPT/HCPCS: 90870; J0330; J2250; J7040

== ENCOUNTER 2018-12-28 04:48 | Outpatient (RCR) | payer OTHER ==
[~2018-12-28] VITALS: Ht 30.5 cm; Wt 0.5 kg
[2018-12-28] MEDS ORDERED: NS 500ML ONE (09:00)
[2018-12-28] MEDS ORDERED: Methohexital Sodium Syr 100mg/10ml IVP ONE (09:00)
[2018-12-28] MEDS ORDERED: Midazolam 2mg/2ml Inj ONE (09:00)
[2018-12-28] MEDS ORDERED: Succinylcholine 20mg/ml 10ml vial ONE (09:00)
[2018-12-28] MEDS ORDERED: Ketorolac 60mg Inj IM ONE (09:00)
[2018-12-28 09:38] VITALS: BP 103/63
[2018-12-28 09:55] VITALS: BP 107/48
[2018-12-28 10:00] VITALS: BP 105/50
[2018-12-28 10:05] VITALS: BP 110/52
[2018-12-28 10:10] VITALS: BP 113/49
== END 2019-01-03 | disposition home or self-care (01) ==
LOC: ECT 04:48
DX: F31.63 Bipolar disorder, current episode mixed, severe, without psychotic features (principal)
CPT/HCPCS: 90870; J0330; J2250; J7040

== ENCOUNTER 2019-01-25 04:43 | Outpatient (RCR) | payer OTHER ==
[~2019-01-25] VITALS: Ht 167.6 cm; Wt 96.0 kg
[2019-01-25] MEDS ORDERED: Methohexital Sodium Syr 100mg/10ml IVP ONE (04:44)
[2019-01-25] MEDS ORDERED: Succinylcholine 20mg/ml 10ml vial ONE (04:44)
[2019-01-25] MEDS ORDERED: Midazolam 2mg/2ml Inj ONE (04:44)
[2019-01-25] MEDS ORDERED: Ketorolac 60mg Inj IM ONE (04:44)
[2019-01-25] MEDS ORDERED: NS 500ML ONE (04:44)
[2019-01-25 10:06] VITALS: BP 106/65
[2019-01-25 10:24] VITALS: BP 103/46
[2019-01-25 10:29] VITALS: BP 99/44
[2019-01-25 10:34] VITALS: BP 104/49
[2019-01-25 10:39] VITALS: BP 111/48
== END 2019-02-03 | disposition home or self-care (01) ==
LOC: ECT 04:43
DX: F31.63 Bipolar disorder, current episode mixed, severe, without psychotic features (principal)
CPT/HCPCS: 90870; J0330; J2250; J7040

== ENCOUNTER 2019-02-22 06:15 | Outpatient (RCR) | payer OTHER ==
[~2019-02-22] VITALS: Ht 30.5 cm; Wt 0.5 kg
[2019-02-22] MEDS ORDERED: NS 500ML ONE (06:16)
[2019-02-22] MEDS ORDERED: Succinylcholine 20mg/ml 10ml vial ONE (06:16)
[2019-02-22] MEDS ORDERED: Midazolam 2mg/2ml Inj ONE (06:16)
[2019-02-22] MEDS ORDERED: Ketorolac 60mg Inj IM ONE (06:16)
[2019-02-22] MEDS ORDERED: Methohexital Sodium Syr 100mg/10ml IVP ONE (06:16)
[2019-03-01 09:46] VITALS: BP 107/61
[2019-03-01 10:14] VITALS: BP 114/43
[2019-03-01] MEDS ORDERED: Atropine Sulfate 0.4mg/ml inj IVP PRN (10:14)
[2019-03-01 10:19] VITALS: BP 108/49
[2019-03-01 10:24] VITALS: BP 115/49
[2019-03-01 10:29] VITALS: BP 104/46
== END 2019-03-06 | disposition home or self-care (01) ==
LOC: ECT 06:15
DX: F31.63 Bipolar disorder, current episode mixed, severe, without psychotic features (principal)
CPT/HCPCS: 90870; J0330; J2250; J7040

== ENCOUNTER 2019-03-29 04:30 | Outpatient (RCR) | payer OTHER ==
[~2019-03-29] VITALS: Ht 167.6 cm; Wt 96.0 kg
[2019-03-29] MEDS ORDERED: NS 500ML ONE (06:00)
[2019-03-29] MEDS ORDERED: Ketorolac 30mg Inj ONE (06:00)
[2019-03-29] MEDS ORDERED: Methohexital Sodium Syr 100mg/10ml IVP ONE (06:00)
[2019-03-29] MEDS ORDERED: Midazolam 2mg/2ml Inj ONE (06:00)
[2019-03-29] MEDS ORDERED: Succinylcholine 20mg/ml 10ml vial ONE (06:00)
[2019-03-29 10:10] VITALS: BP 111/62
[2019-03-29 10:30] VITALS: BP 106/62
[2019-03-29 10:35] VITALS: BP 106/48
[2019-03-29 10:40] VITALS: BP 105/49
[2019-03-29 10:45] VITALS: BP 101/49
== END 2019-04-05 | disposition home or self-care (01) ==
LOC: ECT 04:30
DX: F31.63 Bipolar disorder, current episode mixed, severe, without psychotic features (principal)
CPT/HCPCS: 90870; J0330; J1885; J2250; J7040

== ENCOUNTER 2019-04-26 04:48 | Outpatient (RCR) | payer OTHER ==
[~2019-04-26] VITALS: Ht 167.6 cm; Wt 96.0 kg
[2019-04-26] MEDS ORDERED: Succinylcholine 20mg/ml 10ml vial ONE (06:00)
[2019-04-26] MEDS ORDERED: NS 500ML ONE (06:00)
[2019-04-26] MEDS ORDERED: Methohexital Sodium Syr 100mg/10ml IVP ONE (06:00)
[2019-04-26] MEDS ORDERED: Ketorolac 30mg Inj ONE (06:00)
[2019-04-26] MEDS ORDERED: Midazolam 2mg/2ml Inj ONE (06:00)
[2019-04-26 09:39] VITALS: BP 112/68
[2019-04-26 09:52] VITALS: BP 130/46
[2019-04-26 09:57] VITALS: BP 128/59
[2019-04-26 10:02] VITALS: BP 124/51
[2019-04-26 10:07] VITALS: BP 118/48
== END 2019-05-06 | disposition home or self-care (01) ==
LOC: ECT 04:48
DX: F31.63 Bipolar disorder, current episode mixed, severe, without psychotic features (principal)
CPT/HCPCS: 90870; J0330; J1885; J2250; J7040

== ENCOUNTER 2019-05-24 07:12 | Outpatient (RCR) | payer OTHER ==
[~2019-05-24] VITALS: Ht 167.6 cm; Wt 96.0 kg
[~2019-05-24 07:12] MED LIST: Ketorolac 30mg Inj ONE; Methohexital Sodium Syr 100mg/10ml IVP ONE; Midazolam 2mg/2ml Inj ONE; NS 500ML ONE; Succinylcholine 20mg/ml 10ml vial ONE
[2019-05-24 10:28] VITALS: BP 105/55
[2019-05-24 10:42] VITALS: BP 100/46
[2019-05-24 10:47] VITALS: BP 103/48
[2019-05-24 10:52] VITALS: BP 110/46
[2019-05-24 10:57] VITALS: BP 114/44
== END 2019-06-05 | disposition home or self-care (01) ==
LOC: ECT 07:12
DX: F31.63 Bipolar disorder, current episode mixed, severe, without psychotic features (principal)
CPT/HCPCS: 90870; J0330; J1885; J2250; J7040

== ENCOUNTER 2019-06-21 05:07 | Outpatient (RCR) | payer OTHER ==
[~2019-06-21] VITALS: Ht 167.6 cm; Wt 96.0 kg
[2019-06-21] MEDS ORDERED: Ketorolac 30mg Inj ONE (06:00)
[2019-06-21] MEDS ORDERED: Midazolam 2mg/2ml Inj ONE (06:00)
[2019-06-21] MEDS ORDERED: Methohexital Sodium Syr 100mg/10ml IVP ONE (06:00)
[2019-06-21] MEDS ORDERED: Succinylcholine 20mg/ml 10ml vial ONE (06:00)
[2019-06-21] MEDS ORDERED: NS 500ML ONE (06:00)
[2019-06-21 10:04] VITALS: BP 110/68
[2019-06-21 10:15] VITALS: BP 109/52
[2019-06-21 10:20] VITALS: BP 118/60
[2019-06-21 10:25] VITALS: BP 122/48
[2019-06-21 10:30] VITALS: BP 118/50
== END 2019-07-06 | disposition home or self-care (01) ==
LOC: ECT 05:07
DX: F31.63 Bipolar disorder, current episode mixed, severe, without psychotic features (principal)
CPT/HCPCS: 90870; J2250

== ENCOUNTER 2019-09-03 06:27 | Outpatient (RCR) | payer OTHER ==
[~2019-09-03] VITALS: Ht 30.5 cm; Wt 0.5 kg
[2019-09-03 09:34] VITALS: BP 96/59
[2019-09-03 09:46] VITALS: BP 98/47
[2019-09-03 09:51] VITALS: BP 100/40
[2019-09-03 09:56] VITALS: BP 110/58
[2019-09-03 10:01] VITALS: BP 108/53
[2019-09-04] MEDS ORDERED: Methohexital Sodium Syr 100mg/10ml IVP ONE (21:48)
[2019-09-04] MEDS ORDERED: Succinylcholine 20mg/ml 10ml vial ONE (21:48)
[2019-09-04] MEDS ORDERED: NS 500ML ONE (21:48)
[2019-09-04] MEDS ORDERED: Midazolam 2mg/2ml Inj ONE (21:48)
[2019-09-04] MEDS ORDERED: Ketorolac 60mg Inj IM ONE (21:48)
== END 2019-09-04 | disposition home or self-care (01) ==
LOC: ECT 06:27
DX: F31.63 Bipolar disorder, current episode mixed, severe, without psychotic features (principal)
CPT/HCPCS: 90870; J0330; J2250; J7040

== ENCOUNTER 2019-10-08 05:54 | Outpatient (RCR) | payer OTHER ==
[~2019-10-08] VITALS: Ht 167.6 cm; Wt 96.0 kg
[2019-10-08] MEDS ORDERED: Succinylcholine 20mg/ml 10ml vial ONE (05:55)
[2019-10-08] MEDS ORDERED: Ketorolac 30mg Inj ONE (05:55)
[2019-10-08] MEDS ORDERED: Midazolam 2mg/2ml Inj ONE (05:55)
[2019-10-08] MEDS ORDERED: Methohexital Sodium Syr 100mg/10ml IVP ONE (05:55)
[2019-10-08] MEDS ORDERED: NS 500ML ONE (05:55)
[2019-10-08 09:12] VITALS: BP 104/64
[2019-10-08 09:30] VITALS: BP 105/51
[2019-10-08 09:35] VITALS: BP 105/43
[2019-10-08 09:40] VITALS: BP 110/46
[2019-10-08 09:45] VITALS: BP 98/48
== END 2019-11-04 | disposition home or self-care (01) ==
LOC: ECT 05:54
DX: F31.63 Bipolar disorder, current episode mixed, severe, without psychotic features (principal)
CPT/HCPCS: 90870; J0330; J1885; J2250; J7040

== ENCOUNTER 2019-11-19 07:30 | Outpatient (RCR) | payer OTHER ==
[~2019-11-19] VITALS: Ht 167.6 cm; Wt 98.0 kg
[2019-11-19] MEDS ORDERED: Ketorolac 60mg Inj IM ONE (07:31)
[2019-11-19] MEDS ORDERED: NS 500ML ONE (07:31)
[2019-11-19] MEDS ORDERED: Midazolam 2mg/2ml Inj ONE (07:31)
[2019-11-19] MEDS ORDERED: Methohexital Sodium Syr 100mg/10ml IVP ONE (07:31)
[2019-11-19] MEDS ORDERED: Succinylcholine 20mg/ml 10ml vial ONE (07:31)
[2019-11-22 09:18] VITALS: BP_SYST 102; BP_SYST 110; BP_DIAS 60; BP_DIAS 67
[2019-11-22 09:31] VITALS: BP 105/55
[2019-11-22 09:36] VITALS: BP 110/51
[2019-11-22 09:41] VITALS: BP 111/59
[2019-11-22 09:45] VITALS: BP 105/56
== END 2019-12-05 | disposition home or self-care (01) ==
LOC: ECT 07:30
DX: F31.63 Bipolar disorder, current episode mixed, severe, without psychotic features (principal)
CPT/HCPCS: 90870; J0330; J2250; J7040

== ENCOUNTER 2020-01-03 05:09 | Outpatient (RCR) | payer OTHER ==
[~2020-01-03] VITALS: Ht 33 cm; Wt 0.5 kg
[2020-01-03] MEDS ORDERED: Succinylcholine 20mg/ml 10ml vial ONE (05:10)
[2020-01-03] MEDS ORDERED: NS 500ML ONE (05:10)
[2020-01-03] MEDS ORDERED: Midazolam 2mg/2ml Inj ONE (05:10)
[2020-01-03] MEDS ORDERED: Ketorolac 60mg Inj IM ONE (05:10)
[2020-01-03] MEDS ORDERED: Methohexital Sodium Syr 100mg/10ml IVP ONE (05:10)
[2020-01-03 09:01] VITALS: BP 107/64
[2020-01-03] MEDS ORDERED: Lidocaine 2% 100mg/5ml Carp IV PRN (09:24)
[2020-01-03] MEDS ORDERED: Atropine Sulfate 0.4mg/ml inj IVP PRN (09:24)
[2020-01-03 09:25] VITALS: BP 103/48
[2020-01-03 09:30] VITALS: BP 107/51
[2020-01-03 09:35] VITALS: BP 116/48
[2020-01-03 09:40] VITALS: BP 112/58
== END 2020-01-04 | disposition home or self-care (01) ==
LOC: ECT 05:09
DX: F31.63 Bipolar disorder, current episode mixed, severe, without psychotic features (principal)
CPT/HCPCS: 90870; J0330; J2250; J7040

== ENCOUNTER 2020-02-21 06:11 | Outpatient (RCR) | payer OTHER ==
[~2020-02-21] VITALS: Ht 30.5 cm; Wt 0.5 kg
[2020-02-21] VITALS (7 sets, daily range): BP systolic 105–122; BP diastolic 50–69
[2020-02-21] MEDS ORDERED: Midazolam 2mg/2ml Inj ONE (06:12)
[2020-02-21] MEDS ORDERED: Succinylcholine 20mg/ml 10ml vial ONE (06:12)
[2020-02-21] MEDS ORDERED: Methohexital Sodium Syr 100mg/10ml IVP ONE (06:12)
[2020-02-21] MEDS ORDERED: NS 500ML ONE (06:12)
[2020-02-21] MEDS ORDERED: Ketorolac 60mg Inj IM ONE (06:12)
[2020-02-21] MEDS ORDERED: Atropine Sulfate 0.4mg/ml inj IVP PRN (09:44)
== END 2020-03-06 | disposition home or self-care (01) ==
LOC: ECT 06:11
DX: F31.63 Bipolar disorder, current episode mixed, severe, without psychotic features (principal)
CPT/HCPCS: 90870; J0330; J2250; J7040

== ENCOUNTER 2020-04-10 04:46 | Outpatient (RCR) | payer OTHER ==
[~2020-04-10] VITALS: Ht 167.6 cm; Wt 96.0 kg
[2020-04-10] VITALS (7 sets, daily range): BP systolic 111–122; BP diastolic 49–67
[2020-04-10] MEDS ORDERED: Succinylcholine 20mg/ml 10ml vial ONE (04:47)
[2020-04-10] MEDS ORDERED: Methohexital Sodium Syr 100mg/10ml IVP ONE (04:47)
[2020-04-10] MEDS ORDERED: Midazolam 2mg/2ml Inj ONE (04:47)
[2020-04-10] MEDS ORDERED: Ketorolac 60mg Inj IM ONE (04:47)
[2020-04-10] MEDS ORDERED: Atropine Sulfate 0.4mg/ml inj IVP PRN (09:44)
== END 2020-05-06 | disposition home or self-care (01) ==
LOC: ECT 04:46
DX: F31.63 Bipolar disorder, current episode mixed, severe, without psychotic features (principal)
CPT/HCPCS: 90870; J0330; J2250

== ENCOUNTER 2020-05-15 04:37 | Outpatient (RCR) | payer OTHER ==
[~2020-05-15] VITALS: Ht 167.6 cm; Wt 96.0 kg
[2020-05-26] VITALS (7 sets, daily range): BP systolic 104–118; BP diastolic 50–71
[2020-05-26] MEDS ORDERED: Midazolam 2mg/2ml Inj ONE (06:00)
[2020-05-26] MEDS ORDERED: NS 500ML ONE (06:00)
[2020-05-26] MEDS ORDERED: Ketorolac 60mg Inj IM ONE (06:00)
[2020-05-26] MEDS ORDERED: Methohexita Syr 100mg/10ml IVP ONE (06:00)
[2020-05-26] MEDS ORDERED: Succinylcholine 20mg/ml 10ml vial ONE (06:00)
== END 2020-06-05 | disposition home or self-care (01) ==
LOC: ECT 04:37
DX: F31.63 Bipolar disorder, current episode mixed, severe, without psychotic features (principal)
CPT/HCPCS: 90870; J0330; J2250; J7040

== ENCOUNTER 2020-07-10 08:04 | Outpatient (RCR) | payer OTHER ==
[2020-07-10] VITALS (7 sets, daily range): BP systolic 108–136; BP diastolic 41–77
[~2020-07-10] VITALS: Ht 167.6 cm; Wt 96.0 kg
[2020-07-10] MEDS ORDERED: NS 500ML ONE (08:05)
[2020-07-10] MEDS ORDERED: Midazolam 2mg/2ml Inj ONE (08:05)
[2020-07-10] MEDS ORDERED: Methohexita Syr 100mg/10ml IVP ONE (08:05)
[2020-07-10] MEDS ORDERED: Ketorolac 30mg Inj ONE (08:05)
[2020-07-10] MEDS ORDERED: Succinylcholine 20mg/ml 10ml vial ONE (08:05)
--- NOTE | 2020-07-10 10:09 | NUR ---
According to patient, her has had Covid and tested positive 4 weeks ago, she says she tested and is Negative.Pt. does not appear with any symptoms. She was unable to provide a copy of her results. Dr. Melendez notified. No new orders given. Addendum: 07/10/20 at 1010 by MADELINE DE LOS SANTOS RN RN Amended: Links added.
[2020-07-10] MEDS ORDERED: Lidocaine 2% 100mg/5ml Carp IV PRN (10:44)
[2020-07-10] MEDS ORDERED: Atropine Sulfate 0.4mg/ml inj IVP PRN (10:44)
[2020-07-19] VITALS (7 sets, daily range): BP systolic 106–130; BP diastolic 49–70
[2020-07-19] MEDS ORDERED: NS 500ML ONE (06:00)
[2020-07-19] MEDS ORDERED: Midazolam 2mg/2ml Inj ONE (06:00)
[2020-07-19] MEDS ORDERED: Ketorolac 30mg Inj ONE (06:00)
[2020-07-19] MEDS ORDERED: Methohexita Syr 100mg/10ml IVP ONE (06:00)
[2020-07-19] MEDS ORDERED: Succinylcholine 20mg/ml 10ml vial ONE (06:00)
[2020-07-24] VITALS (7 sets, daily range): BP systolic 108–145; BP diastolic 45–69
[2020-07-24] MEDS ORDERED: Midazolam 2mg/2ml Inj ONE (06:00)
[2020-07-24] MEDS ORDERED: Ketorolac 60mg Inj IM ONE (06:00)
[2020-07-24] MEDS ORDERED: Methohexita Syr 100mg/10ml IVP ONE (06:00)
[2020-07-24] MEDS ORDERED: Succinylcholine 20mg/ml 10ml vial ONE (06:00)
[2020-07-24] MEDS ORDERED: Atropine Sulfate 0.4mg/ml inj IVP PRN (10:04)
[2020-07-24] MEDS ORDERED: Lidocaine 2% 100mg/5ml Carp IV PRN (10:04)
== END 2020-08-06 | disposition home or self-care (01) ==
LOC: ECT 08:04
DX: F31.63 Bipolar disorder, current episode mixed, severe, without psychotic features (principal)
CPT/HCPCS: 90870; J0330; J1885; J2250; J7040

== ENCOUNTER 2020-08-11 05:43 | Outpatient (RCR) | payer OTHER ==
[2020-08-11] VITALS (7 sets, daily range): BP systolic 102–117; BP diastolic 59–70
[~2020-08-11] VITALS: Ht 167.6 cm; Wt 96.0 kg
[2020-08-11] MEDS ORDERED: Midazolam 2mg/2ml Inj ONE (05:44)
[2020-08-11] MEDS ORDERED: Ketorolac 30mg Inj ONE (05:44)
[2020-08-11] MEDS ORDERED: Methohexita Syr 100mg/10ml IVP ONE (05:44)
[2020-08-11] MEDS ORDERED: Succinylcholine 20mg/ml 10ml vial ONE (05:44)
[2020-08-11] MEDS ORDERED: NS 500ML ONE (05:44)
[2020-08-28] VITALS (7 sets, daily range): BP systolic 107–133; BP diastolic 54–70
[2020-08-28] MEDS ORDERED: Succinylcholine 20mg/ml 10ml vial ONE (06:00)
[2020-08-28] MEDS ORDERED: Midazolam 2mg/2ml Inj ONE (06:00)
[2020-08-28] MEDS ORDERED: NS 500ML ONE (06:00)
[2020-08-28] MEDS ORDERED: Ketorolac 60mg Inj IM ONE (06:00)
[2020-08-28] MEDS ORDERED: Methohexita Syr 100mg/10ml IVP ONE (06:00)
== END 2020-09-03 | disposition home or self-care (01) ==
LOC: ECT 05:43
DX: F31.63 Bipolar disorder, current episode mixed, severe, without psychotic features (principal)
CPT/HCPCS: 90870; J0330; J1885; J2250; J7040